=== PATIENT | male | born 1945 | race African-American/Black ===

== ENCOUNTER 2020-03-21 19:24 | Emergency (ER) | payer MEDICARE, SELFPAY ==
[2020-03-21] VITALS (8 sets, daily range): BP systolic 191–201; BP diastolic 93–107; PULSE 68–79; RESP 17–34; TEMP 36.7; O2SAT 95–100
--- NOTE | ~2020-03-21 | XR_ITS ---
EXAMINATION: XR foot RT min 3V EXAM DATE: 03/21/2020 20:43 INDICATION: Bilateral lower extremity edema, weeping wounds. TECHNIQUE: Right foot dorsoplantar, lateral and oblique projections obtained and reviewed. There is no prior study for comparison. FINDINGS: Right metatarsal bones unremarkable. There are no bony erosions identified. There are no a cute fractures or dislocations identified. There is no subcutaneous gas. Extensive soft tissue swel ling over the foot and ankle. There are no radiopaque foreign bodies. 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 IMPRESSION: Extensive right lower extremity soft tissue edema. Reviewed, dictated and finalized at location A.
--- NOTE | ~2020-03-21 | XR_ITS ---
EXAMINATION: XR tibia fibula RT 2V EXAM DATE: 03/21/2020 20:43 INDICATION: Bilateral lower extremity edema, weeping wounds. TECHNIQUE: Right tibia/fibula frontal and lateral projections obtained and reviewed. There is no tita or study for comparison. FINDINGS: Right tibial and fibular shafts unremarkable. There are no bony erosions identified. Ther e are no acute fractures or dislocations identified. There is no subcutaneous gas. Extensive soft t issue swelling. There are no radiopaque foreign bodies. 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 IMPRESSION: Extensive right lower leg edema. Reviewed, dictated and finalized at location A.
--- NOTE | ~2020-03-21 | XR_ITS ---
EXAMINATION: XR foot LT min 3V EXAM DATE: 03/21/2020 20:42 INDICATION: Bilateral lower extremity edema, weeping wounds. TECHNIQUE: Left foot dorsoplantar, lateral and oblique projections obtained and reviewed. There is n o prior study for comparison. FINDINGS: Left metatarsal bones unremarkable. There are no bony erosions identified. There are no acute fractures or dislocations identified. There is no subcutaneous gas. Extensive left foot and a nkle soft tissue swelling. There are no radiopaque foreign bodies. IMPRESSION: Extensive left lower extremity edema. Reviewed, dictated and finalized at location A.
--- NOTE | ~2020-03-21 | XR_ITS ---
EXAMINATION: XR tibia fibula LT 2V EXAM DATE: 03/21/2020 20:43 INDICATION: Bilateral lower extremity edema, weeping wounds. TECHNIQUE: Left tibia/fibula frontal and lateral projections obtained and reviewed. There is no prio r study for comparison. FINDINGS: Left tibial and fibular shafts unremarkable. There are no bony erosions identified. There are no bony erosions identified. There are no acute fractures or dislocations identified. Ther e is no subcutaneous gas. There is extensive soft tissue swelling. There are no radiopaque foreign bodies. 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 IMPRESSION: Extensive left lower leg edema. Reviewed, dictated and finalized at location A.
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
--- NOTE | 2020-03-21 19:54 | PC.NURSE ---
Asked pt to verify allergies. pt states I have a whole bunch RN asked pt to further explain. pt states I am allergic to Heroin and Cocaine. RN told pt we will not be giving him street drugs here. Informed pt RN needs to know what his allergies are to be able to medicate him. pt states all my information is at the [facility].
--- NOTE | 2020-03-21 20:08 | PC.NURSE ---
pt stuck 2x for IV and blood draw no success. EDP notified.
[2020-03-21 20:49] LABS: Basophils Percent Auto 0.4 % (0.2-1.2); Eosinophils Absolute Auto 0.3 K/mm3 (0-0.3); Eosinophils Percent Auto 3.5 % (0-4.4); Hematocrit 39.1 % (42.0-52.0); Hemoglobin 12.1 g/dL (14.0-18.0); Immature Granulocyte Absolute 0.03 K/mm3 (0.00-0.031); Immature Granulocyte Percent A 0.3 % (0-0.5); Lymphocytes Absolute Auto 1.83 K/mm3 (0.9-3.2); Lymphocytes Percent Auto 19.2 % (18.3-44.2); Mean Corpuscular HGB Conc 30.9 g/dl (32-36); Mean Corpuscular Volume 80.8 fl (80-100); Mean Platelet Volume 11.3 fl (7.4-10.4); Monocytes Absolute Auto 0.8 K/mm3 (0.1-0.6); Neutrophils Absolute Auto 6.5 K/mm3 (1.3-6.7); Neutrophils Percent Auto 68.6 % (45.5-73.1); Platelet Count Result 291 k/mm3 (150-375); Red Blood Count 4.84 M/mm3 (4.6-6.20); Red Cell Distribution Width 13.7 % (11.5-14.5); White Blood Count 9.5 K/mm3 (4.5-10.0)
[2020-03-21 21:26] LABS: INR 3.7; Prothrombin Time 35.8 Seconds (11.1-14.7)
[2020-03-21 21:27] LABS: Partial Thromboplastin Time 63.8 SECONDS (22.3-36.8)
[2020-03-21 21:30] LABS: Blood Urea Nitrogen 13 mg/dL (9-20); Calcium 8.9 mg/dL (8.4-10.2); Carbon Dioxide 33 mmol/L (22-30); Chloride 101 mmol/L (98-107); Estimated CRCL calculation 107 ml/min; Estimated Glomerular Filt Rate > 60; Glucose 109 mg/dL (75-110); Potassium 3.8 mmol/L (3.4-5.0); Sodium 138 mmol/L (137-145)
[2020-03-21 22:17] LABS: Erythrocyte Sedimentation Rate 30 mm/hr (0-20)
== END 2020-03-21 23:30 | disposition home or self-care (01) ==
PROVIDERS: Emergency Provider Emergency Medicine
DX: L98.8 Other specified disorders of the skin and subcutaneous tissue (principal); I10 Essential (primary) hypertension; I25.2 Old myocardial infarction; I73.9 Peripheral vascular disease, unspecified; E66.9 Obesity, unspecified; Z68.41 Body mass index [BMI] 40.0-44.9, adult; Z95.5 Presence of coronary angioplasty implant and graft; R60.0 Localized edema
CPT/HCPCS: 36415; 73590; 73630; 80048; 85025; 85610; 85652; 85730; 86140; 99284